=== PATIENT | female | born 1950 | race Caucasian/White ===

== ENCOUNTER → 2018-12-14 | Day surgery (SDC) | payer MEDICARE, OTHER | LOC: MSO 08:09 | DX: H25.812 Combined forms of age-related cataract, left eye (principal) ==

== ENCOUNTER → 2018-12-14 | Day surgery (SDC) | payer MEDICARE, OTHER | LOC: MSO 09:39 | DX: E11.36 Type 2 diabetes mellitus with diabetic cataract (principal); H25.812 Combined forms of age-related cataract, left eye; J43.9 Emphysema, unspecified; E78.00 Pure hypercholesterolemia, unspecified; I10 Essential (primary) hypertension; E03.9 Hypothyroidism, unspecified; Z95.1 Presence of aortocoronary bypass graft; Z79.82 Long term (current) use of aspirin; Z79.02 Long term (current) use of antithrombotics/antiplatelets; I25.2 Old myocardial infarction; E66.01 Morbid (severe) obesity due to excess calories | CPT/HCPCS: 00142; J0171; J2250; V2632 ==

== ENCOUNTER → 2019-04-19 | Day surgery (SDC) | payer MEDICARE, OTHER | LOC: MSO 11:01 | DX: E11.36 Type 2 diabetes mellitus with diabetic cataract (principal); H26.492 Other secondary cataract, left eye; J45.909 Unspecified asthma, uncomplicated; E78.00 Pure hypercholesterolemia, unspecified; I25.10 Atherosclerotic heart disease of native coronary artery without angina pectoris; E03.9 Hypothyroidism, unspecified; Z95.1 Presence of aortocoronary bypass graft; Z79.82 Long term (current) use of aspirin; Z79.02 Long term (current) use of antithrombotics/antiplatelets ==